=== PATIENT | female | born 1960 | race Caucasian/White ===

== ENCOUNTER 2018-04-19 07:03 | Emergency (ER) | payer OTHER ==
[2018-04-19] MEDS: IBUPROFEN 600 MG TAB PO (07:20)
== END 2018-04-19 08:57 | disposition home or self-care (01) ==
LOC: FTE 07:03
DX: S82.832A Other fracture of upper and lower end of left fibula, initial encounter for closed fracture (principal); X58.XXXA Exposure to other specified factors, initial encounter; Y92.9 Unspecified place or not applicable
CPT/HCPCS: 29505; 73562; 99283-25

== ENCOUNTER 2018-05-28 20:29 | Emergency (ER) | payer OTHER | END 2018-05-28 23:45 | disposition home or self-care (01) | LOC: FTE 23:45 | DX: S40.861A Insect bite (nonvenomous) of right upper arm, initial encounter (principal); L08.9 Local infection of the skin and subcutaneous tissue, unspecified; W57.XXXA Bitten or stung by nonvenomous insect and other nonvenomous arthropods, initial encounter; Y92.9 Unspecified place or not applicable | CPT/HCPCS: 99283; Z7502 ==